=== PATIENT | female | born 1945 | race African-American/Black ===

== ENCOUNTER 2022-03-24 04:26 | Inpatient (IN) | payer MEDICAID ==
[~2022-03-24] VITALS: Ht 154.9 cm; Wt 70.3 kg
[2022-03-24 04:43] VITALS: BP_SYST 136
--- NOTE | 2022-03-24 04:53 | NUR ---
PT HERE C/O LLQ ABDOMINAL PAIN AND AROUND THE STOMA AREA SINCE 1000 AM YESTERDAY. PT DENIES N/V/D, DENIES DYSURIA. DENIES FEVER. PMH;COLON CA, COLOSTOMY BAG, HTN PT AAOX4, AMBULATE WITH STEADY GAIT TO RM3, PENDING MD FAY.
[2022-03-24] MEDS ORDERED: NACL 0.9% 1,000 ML IV ONE ×2 (05:15→06:30)
--- NOTE | 2022-03-24 05:15 | NUR ---
ASSUME CARE OF PT BY PAT PARSON, PT PLACED ON SOCIAL SERVICES DIRECTOR, BROTHER AT BEDSIDE, PT C/O LLQ ABD PAIN, PT HAS COLOSTOMY, PT DENIES N/V, PT DENIES ANY CP, PT STATES SHE HAS INTERMITENT SOB. HX- HTN
[2022-03-24 06:14] LABS: ANION GAP 4 (5-15); CALCIUM 9.3 mg/dL (8.4-11.0); CHLORIDE 103 mmol/L (98-107); CREATININE 0.86 mg/dL (0.55-1.30); GLUCOSE 100 mg/dL (70-99); POTASSIUM 3.4 mmol/L (3.5-5.1); SODIUM SERUM 143 mmol/L (136-145); UREA NITROGEN, BLOOD 17 mg/dL (8-21)
[2022-03-24 06:20] LABS: ALANINE AMINOTRANSFERASE 16 U/L (12-78); ALBUMIN 3.4 g/dL (3.4-4.8); ASPARTATE AMINOTRANSFERASE 18 U/L (10-37); LIPASE 99 U/L (73-393); TOTAL BILIRUBIN 0.2 mg/dL (0.0-1.0)
[2022-03-24] MEDS ORDERED: KETOROLAC TROMETHAMINE 30 MG VIAL IVP ONE (06:30)
[2022-03-24] MEDS ORDERED: MAGNESIUM CITRATE 300 ML ORAL SOLUTION PO ONE (06:30)
--- NOTE | 2022-03-24 07:05 | NUR ---
Admit bed requested Patient will be admitted to care of Dr. Dsouza. Admitted to Med Surg unit. Diagnosis Abd Pain Inpatient (Yes or No) Y Observation (Yes or No) N Orientation concerns or request close to nursing station (Yes or No) N Covid Status Neg On vent or bipap N Isolation requirements N Needs a sitter N From Home (Yes or if No enter name of facility) Yes Requires Dialysis (Yes or No) N Med Rec Completed (Yes of No) Y
--- NOTE | 2022-03-24 08:30 | NUR ---
HARLEY Rizo at bedside examining patient.
[2022-03-24 08:42] LABS: HEMATOCRIT 39.1 % (36-48); HEMOGLOBIN 13.1 g/dL (12.0-16.0); MEAN CORPUSCULAR HEMOGLOBIN 28 pg (27-31); MEAN CORPUSCULAR HGB CONC 33 % (32-36); MEAN CORPUSCULAR VOLUME 83 fL (79.0-98.0); PLATELET COUNT (AUTO) 187 K/uL (130-430); RED BLOOD CELL COUNT(AUTO) 4.73 MIL/uL (4.2-6.2); RED CELL DISTRIBUTION WIDTH 15.5 % (9.0-15.0); WHITE BLOOD COUNT (AUTO) 8.4 K/uL (4.8-10.8)
[2022-03-24 08:43] LABS: BILIRUBIN,URINE NEGATIVE (NEGATIVE); CLARITY/URINE CLEAR (CLEAR); COLOR,URINE YELLOW (YELLOW); GLUCOSE,URINE NEGATIVE (NEGATIVE); KETONES,URINE NEGATIVE (NEGATIVE); LEUKOCYTE ESTERASE ,URINE NEGATIVE (NEGATIVE); NITRITE, URINE NEGATIVE (NEGATIVE); PROTEIN URINE NEGATIVE (NEGATIVE); UROBILINOGEN,URINE 0.2 (0.2-1.0)
[2022-03-24 08:46] LABS: BLOOD, URINE TRACE (NEGATIVE)
[2022-03-24 09:30] LABS: RBC,URINE 0-3 /HPF (0-3); WBC,URINE 0-3 /HPF (0-3)
[2022-03-24 09:31] LABS: BACTERIA,URINE RARE /HPF (None Seen)
[2022-03-24 12:12] LABS: ATYPICAL LYMPHOCYTES % 0 % (0-0); BAND % (MANUAL) 0 % (0-6); BASOPHILS % (MANUAL) 0 % (0-2); EOSINOPHILS % (MANUAL) 1 % (0-7); LYMPHOCYTES % (MANUAL) 35 % (20-46); MONOCYTES % (MANUAL) 4 % (0-11)
--- NOTE | 2022-03-24 12:35 | NUR ---
Colostomy bag was leaking from both sides. Seal was broken. Applied new bag, with skin protectant and sealant. Pt tolerated well. Brother is at the bedside.
[2022-03-24] MEDS ORDERED: DOCUSATE SODIUM 100 MG/10 ML UDC PO PRN (13:30)
[2022-03-24] MEDS ORDERED: HYDROcodone/ACETAMIN 7.5-325 MG TAB PO PRN (13:30)
[2022-03-24] MEDS ORDERED: guaiFENesin/DEXTROMETHORPHAN 10 ML UDC PO PRN (13:30)
[2022-03-24] MEDS ORDERED: MORPHINE 2 MG/ML INJ. SYRINGE IVP PRN (13:30)
[2022-03-24] MEDS ORDERED: ACETAMINOPHEN 500 MG TABLET PO PRN (13:30)
[2022-03-24] MEDS ORDERED: ONDANSETRON HCL 4 MG/2 ML VIAL IVP PRN (13:30)
[2022-03-24] MEDS ORDERED: ZOLPIDEM TARTRATE 5 MG TABLET PO PRN (13:30)
[2022-03-24] MEDS ORDERED: PANTOPRAZOLE SODIUM 40 MG TAB PO ONE (13:45)
[2022-03-24] MEDS ORDERED: ATEN-41 PO (14:07)
[2022-03-24] MEDS ORDERED: OMEP40CA20 PO (14:09)
[2022-03-24] MEDS ORDERED: HYDR12.55 (14:10)
--- NOTE | 2022-03-24 14:12 | NUR ---
Medication reconciliation completed with information provided by [email or web address]. Any prior medication reconciliation on file was reviewed and corrected.
[2022-03-24 17:39] LABS: PROTHROMBIN TIME 9.7 SECS (9.5-12.5)
--- NOTE | 2022-03-24 18:00 | NUR ---
Patient will be admitted to care of Dr. Smith. Admitted to Med Surg unit. Will go to room 110A. Belongings list completed. Complete and up to date summary report printed. SBAR report to be given at bedside with opportunity for questions.
[2022-03-24 18:08] LABS: FREE T4 (FREE THYROXINE) 1.1 ng/dl (0.8-1.5); PHOSPHORUS 2.7 mg/dL (2.7-4.5); THYROID STIMULATING HORMONE 0.75 uIu/mL (0.36-3.74)
[2022-03-24 18:30] VITALS: BP_SYST 123
--- NOTE | 2022-03-24 18:30 | NUR ---
ARRIVAL TO UNIT Patient arrived to unit via gurney. Patient is AOX4. Iranian speaking, understands some Chinese. Patient denies pain. No facial grimace noted. On room air, no s/s of distress noted. Breathing is even and nonlabored. Vital signs obtained, as documented. Patient is NPO. No IV access. Oriented to room and call light use. Brother at bedside. Safety precautions in place and call light within reach.
--- NOTE | 2022-03-24 19:35 | NUR ---
Closing Note Patient is resting, eyes open. Denies pain. No SOB. No s.s of distress noted. Safety precautions in place and call light within reach. Endorsed care to oncoming nurse.
--- NOTE | 2022-03-24 20:36 | NUR ---
ADMIT NOTE Received pt from ER to the floor with a diagnosis of ABDOMINAL PAIN . Admission process initiated. patient oriented to pain management, safety and call light-teach back done procedures explained , patient NPO , small amount of ice chips given & tolerated family also here at the bedside / .
--- NOTE | 2022-03-24 20:45 | NUR ---
CONSULTATION PAGED/CALLED Reason for Consultation: ABDOMINAL PAIN Person Who was Notified: DR. AUGUSTINA FULLER Consulting Physician: YESY GLASER Inspector Cold Working Specialty: SURGEON Ordering Physician: DR. CORONEL
[2022-03-24] MEDS: D5NS 1,000 ML IV SCH (22:41)
--- NOTE | 2022-03-24 22:43 | NUR ---
New IV start 22 GAUGE LEFT HAND TOLERATED .
--- NOTE | 2022-03-25 00:15 | NUR ---
ASSIST FOR USE OF BED LENTZ FOR URINE , kept clean also dry as needed , family here at the bedside procedures explained / .
[2022-03-25 00:22] VITALS: BP_SYST 129; BP_SYST 140
--- NOTE | 2022-03-25 04:10 | NUR ---
Hourly Rounding patient Resting is verbally Responsive HOB elevated chest movement shallow also symmetrical / .
[2022-03-25] MEDS: D5NS 1,000 ML IV SCH ×3 (06:11→13:30)
[2022-03-25 08:00] VITALS: BP_SYST 125
--- NOTE | 2022-03-25 08:00 | NUR ---
Miss Harden has been assessed as indicated. she states that her pain in 3/10 and accepts tylenol for pain relief. Tylenol was effective. She has a colostomy with a small amount os stool output. She uses a bed starks to void. bowel sounds are active
[2022-03-25 08:10] LABS: ANION GAP 6 (5-15); CALCIUM 8.8 mg/dL (8.4-11.0); CHLORIDE 109 mmol/L (98-107); GLUCOSE 84 mg/dL (70-99); POTASSIUM 3.1 mmol/L (3.5-5.1); SODIUM SERUM 144 mmol/L (136-145); UREA NITROGEN, BLOOD 14 mg/dL (8-21)
[2022-03-25] MEDS ORDERED: POTASSIUM CHLORIDE 20 MEQ TAB.PRT.SR PO PRN (09:00)
[2022-03-25] MEDS: PANTOPRAZOLE SODIUM 40 MG TAB PO SCH (11:24)
--- NOTE | 2022-03-25 12:00 | NUR ---
Miss Harden has been started on a clear liquid diet and has tolerated this well. She has no nausea or vomiting. She continues to deny pain. And she voids via bedpan. I-MD has been used for simple communication needs. she is able to hear and communicate to staff with this method
[2022-03-25 14:46] LABS: BASOPHILS % (AUTO) 0.8 % (0.0-2.0); EOSINOPHILS # (AUTO) 0.1 K/uL (0.0-0.4); HEMATOCRIT 38.6 % (36-48); HEMOGLOBIN 12.6 g/dL (12.0-16.0); LYMPHOCYTES # (AUTO) 1.1 K/uL (1.0-5.5); LYMPHOCYTES % (AUTO) 32.1 % (20.5-51.5); MEAN CORPUSCULAR HEMOGLOBIN 27 pg (27-31); MEAN CORPUSCULAR HGB CONC 33 % (32-36); MEAN CORPUSCULAR VOLUME 84 fL (79.0-98.0); MONOCYTES # (AUTO) 0.3 K/uL (0.0-1.0); MONOCYTES % (AUTO) 7.7 % (1.7-9.3); NEUTROPHILS % (AUTO) 57.4 % (40.0-70.0); PLATELET COUNT (AUTO) 199 K/uL (130-430); RED BLOOD CELL COUNT(AUTO) 4.59 MIL/uL (4.2-6.2); RED CELL DISTRIBUTION WIDTH 15.7 % (9.0-15.0)
[2022-03-25 14:50] LABS: WHITE BLOOD COUNT (AUTO) 3.5 K/uL (4.8-10.8)
[2022-03-25 16:00] VITALS: BP_SYST 131
--- NOTE | 2022-03-25 17:00 | NUR ---
Miss Harden has been seen the surgeon today. He states that there is no need for surgery at this time. He will observe her overnight. If she continues to to tolerate clears tonight. and be advanced to soft in AM with no complication she will be DC tomorrow afternoon. via [employer] translate she expressed that she understood the plan and appeared to be compliant with the plan of care. This telegraphic typewriter operator called and spoke with her brother who is Turkish speaking and made him aware of the plan of care also
--- NOTE | 2022-03-25 19:00 | NUR ---
opening received pt from day nurse. pt in bed alert, awake and stable at this time. pt has no c/o pain or distress noted at this time. vitals taken and within normal limits resp even while on ra. skin warm to touch and clean and dry. iv site clean and intact with ivf running pt tolerated well. call light in reach and bed to lowest position.
--- NOTE | 2022-03-25 19:15 | NUR ---
Handoff has been given eunice Ochoa
[2022-03-25 20:12] VITALS: BP_SYST 130
[2022-03-26] MEDS: D5NS 1,000 ML IV SCH ×2 (00:12→05:41)
[2022-03-26 06:49] LABS: BASOPHILS % (AUTO) 0.6 % (0.0-2.0); EOSINOPHILS # (AUTO) 0.1 K/uL (0.0-0.4); EOSINOPHILS % (AUTO) 2.4 % (0.0-4.0); HEMATOCRIT 38.6 % (36-48); HEMOGLOBIN 12.6 g/dL (12.0-16.0); LYMPHOCYTES # (AUTO) 1.5 K/uL (1.0-5.5); LYMPHOCYTES % (AUTO) 40.1 % (20.5-51.5); MEAN CORPUSCULAR HEMOGLOBIN 28 pg (27-31); MEAN CORPUSCULAR HGB CONC 33 % (32-36); MEAN CORPUSCULAR VOLUME 84 fL (79.0-98.0); MONOCYTES # (AUTO) 0.2 K/uL (0.0-1.0); MONOCYTES % (AUTO) 6.2 % (1.7-9.3); NEUTROPHILS # (AUTO) 1.9 K/uL (1.8-7.7); NEUTROPHILS % (AUTO) 50.7 % (40.0-70.0); PLATELET COUNT (AUTO) 190 K/uL (130-430); RED BLOOD CELL COUNT(AUTO) 4.61 MIL/uL (4.2-6.2); RED CELL DISTRIBUTION WIDTH 15.7 % (9.0-15.0); WHITE BLOOD COUNT (AUTO) 3.8 K/uL (4.8-10.8)
[2022-03-26 08:00] VITALS: BP_SYST 141
--- NOTE | 2022-03-26 08:00 | NUR ---
Initial Notes Patient is AOx4. Patient's breathing is even and nonlabored, on room air. No s.s of distress noted. Denies pain. Breakfast at bedside. Safety precautions in place and call light within reach.
[2022-03-26 08:58] LABS: ANION GAP 9 (5-15); CALCIUM 8.7 mg/dL (8.4-11.0); CHLORIDE 112 mmol/L (98-107); CREATININE 0.69 mg/dL (0.55-1.30); GLUCOSE 93 mg/dL (70-99); POTASSIUM 3.3 mmol/L (3.5-5.1); SODIUM SERUM 146 mmol/L (136-145); UREA NITROGEN, BLOOD 7 mg/dL (8-21)
[2022-03-26] MEDS: PANTOPRAZOLE SODIUM 40 MG TAB PO SCH (09:58)
[2022-03-26] MEDS ORDERED: ATENOLOL 25 MG TABLET(TENORMIN) PO ONE (11:30)
[2022-03-26] MEDS ORDERED: POTASSIUM CHLORIDE 20 MEQ TAB.PRT.SR PO PRN (11:30)
--- NOTE | 2022-03-26 11:30 | NUR ---
Notes Patient has been cleaned and linen change. No s.s of distress noted. Denies pain. Safety precautions in place and call light within reach.
[2022-03-26 12:00] VITALS: BP_SYST 132
[2022-03-26 16:00] VITALS: BP_SYST 127
--- NOTE | 2022-03-26 16:44 | NUR ---
Notes Patient is resting, eyes closed. No s.s of distress noted. Breathing is even and nonlabored. Safety precautions in place and call light within reach.
--- NOTE | 2022-03-26 16:45 | NUR ---
PATIENT REFUSED TO PARTICIPATE WITH PHYSICAL THERAPY AND STATES SHE IS ABLE TO WALK ON HER OWN. PATIENT WAS OBSERVED WALKING ON HER OWN WITHOUT ASSISTIVE DEVICE ON THE HALLWAY.
--- NOTE | 2022-03-26 19:06 | NUR ---
Closing Notes Patient is eating dinner. Has tolerated soft diet well. No s.s of distress noted. Breathing is even and nonlabored on room air. Denies pain. Patient request colostomy bag to be changed. New bag applied. All needs met. Safety precautions in place and call light within reach. Will endorse care to oncoming nurse.
[2022-03-26 20:08] VITALS: BP_SYST 135
[2022-03-26] MEDS: ATENOLOL 25 MG TABLET(TENORMIN) PO SCH (20:12)
--- NOTE | 2022-03-27 06:26 | NUR ---
Closing Note- Pt awake and oriented. Ambulatory. Independent in ADL. LLQ Colostomy with small amount of brown soft stool. Denied any pain after meal. Encouraged activity. skin dry and intact.
[2022-03-27 06:52] LABS: BASOPHILS % (AUTO) 0.3 % (0.0-2.0); EOSINOPHILS # (AUTO) 0.1 K/uL (0.0-0.4); EOSINOPHILS % (AUTO) 2.3 % (0.0-4.0); HEMOGLOBIN 12.8 g/dL (12.0-16.0); LYMPHOCYTES # (AUTO) 1.4 K/uL (1.0-5.5); LYMPHOCYTES % (AUTO) 35.9 % (20.5-51.5); MEAN CORPUSCULAR HEMOGLOBIN 28 pg (27-31); MEAN CORPUSCULAR HGB CONC 33 % (32-36); MEAN CORPUSCULAR VOLUME 84 fL (79.0-98.0); MONOCYTES # (AUTO) 0.3 K/uL (0.0-1.0); MONOCYTES % (AUTO) 6.6 % (1.7-9.3); NEUTROPHILS # (AUTO) 2.2 K/uL (1.8-7.7); NEUTROPHILS % (AUTO) 54.9 % (40.0-70.0); PLATELET COUNT (AUTO) 184 K/uL (130-430); RED BLOOD CELL COUNT(AUTO) 4.64 MIL/uL (4.2-6.2); RED CELL DISTRIBUTION WIDTH 15.4 % (9.0-15.0)
[2022-03-27 07:31] LABS: ANION GAP 7 (5-15); CALCIUM 9.4 mg/dL (8.4-11.0); CHLORIDE 108 mmol/L (98-107); GLUCOSE 72 mg/dL (70-99); POTASSIUM 3.5 mmol/L (3.5-5.1); SODIUM SERUM 142 mmol/L (136-145); UREA NITROGEN, BLOOD 13 mg/dL (8-21)
[2022-03-27 08:00] VITALS: BP_SYST 137
--- NOTE | 2022-03-27 09:00 | NUR ---
Miss Harden has been assessed as indicated. She continues to deny pain. She ambulates about in her room without assistance and a steady gait. She tolerates her diet well. She has had no N/V/D. her colostomy has formed stool and she manages her appliance herself. She is resting quietly at this time
[2022-03-27] MEDS: PANTOPRAZOLE SODIUM 40 MG TAB PO SCH (11:12)
[2022-03-27] MEDS: ATENOLOL 25 MG TABLET(TENORMIN) PO SCH (11:13)
[2022-03-27 12:00] VITALS: BP_SYST 130
[2022-03-27 15:17] VITALS: BP_SYST 137
--- NOTE | 2022-03-27 16:15 | NUR ---
Miss Harden has been DC to home. IV access has been removed. DC instructions were reviewed with her with the [employer] everardo. She expressed that she understood that there were no changed to her Diet, activity, medications or bathing. The instructions were reviewed again when her brother arrived he translated and she again expressed that she understood. She will make her follow up appointment with her PCP. At the time of DC she was compliant with the plan to DC home and at departure she had no s/s of distress or discomfort. Her home meds were returned to her from the pharmacy hold.
== END 2022-03-27 16:15 | disposition home or self-care (01) | DRG 254 ==
LOC: SED 04:26 → SMU 11:04
PROVIDERS: ADMIT Family Medicine; ATTEND Family Medicine
DX: K43.9 Ventral hernia without obstruction or gangrene (principal); E87.2 Acidosis; E87.6 Hypokalemia; I10 Essential (primary) hypertension; K21.9 Gastro-esophageal reflux disease without esophagitis; K56.41 Fecal impaction; Z20.822 Contact with and (suspected) exposure to COVID-19; Z85.038 Personal history of other malignant neoplasm of large intestine; Z79.899 Other long term (current) drug therapy
CPT/HCPCS: 36415; 71045; 76376; 80048; 80053; 80061; 81000; 82150; 83036; 83605; 83690; 83735; 83880; 84100; 84439; 84443; 85007; 85025; 85027; 85610-TC; 85651-TC; 85730-TC; 96361; 96374; 99285; J1885

== ENCOUNTER 2024-01-24 09:05 | Emergency (ER) | payer MEDICAID ==
[~2024-01-24] VITALS: Ht 157.5 cm; Wt 77.1 kg
[~2024-01-24 09:05] MED LIST: ATEN-41 PO; HYDR12.55; OMEP40CA20 PO
[2024-01-24 09:25] VITALS: BP_SYST 137; PULSE 89; RESP 16; TEMP 97.6; O2SAT 100
[2024-01-24 09:40] LABS: ERYTHROCYTE SEDIMENTATION RATE 19 MM/HR (0-20)
[2024-01-24 09:44] LABS: BASOPHILS % (AUTO) 0.7 % (0.0-2.0); EOSINOPHILS # (AUTO) 0.1 K/uL (0.0-0.4); EOSINOPHILS % (AUTO) 1.5 % (0.0-4.0); HEMATOCRIT 40.7 % (36-48); HEMOGLOBIN 13.2 g/dL (12.0-16.0); LYMPHOCYTES # (AUTO) 1.5 K/uL (1.0-5.5); LYMPHOCYTES % (AUTO) 29.6 % (20.5-51.5); MEAN CORPUSCULAR HEMOGLOBIN 28 pg (27-31); MEAN CORPUSCULAR HGB CONC 32 % (32-36); MEAN CORPUSCULAR VOLUME 86 fL (79.0-98.0); MONOCYTES # (AUTO) 0.4 K/uL (0.0-1.0); MONOCYTES % (AUTO) 8.5 % (1.7-9.3); NEUTROPHILS % (AUTO) 59.7 % (40.0-70.0); PLATELET COUNT (AUTO) 211 K/uL (130-430); RED BLOOD CELL COUNT(AUTO) 4.71 MIL/uL (4.2-6.2); RED CELL DISTRIBUTION WIDTH 15.3 % (9.0-15.0)
[2024-01-24 10:04] LABS: PROTHROMBIN TIME 9.9 SECS (9.5-12.5)
[2024-01-24 10:13] LABS: ANION GAP 6 (5-15); CALCIUM 9.4 mg/dL (8.4-11.0); CARBON DIOXIDE 32 mmol/L (23-29); CHLORIDE 102 mmol/L (98-107); CREATININE 0.99 mg/dL (0.55-1.30); GLUCOSE 76 mg/dL (74-106); POTASSIUM 3.8 mmol/L (3.5-5.1); SODIUM SERUM 140 mmol/L (136-145); UREA NITROGEN, BLOOD 29 mg/dL (8-21); URIC ACID 7.6 mg/dL (2.4-7.0)
[2024-01-24] MEDS ORDERED: HYDR-3917 PO (10:30)
[2024-01-24] MEDS ORDERED: IBUP-1969 PO (10:30)
[2024-01-24 11:00] VITALS: BP_SYST 137; PULSE 63; RESP 18; TEMP 97.3; O2SAT 100
== END 2024-01-24 11:00 | disposition home or self-care (01) ==
LOC: SED 09:05
DX: M13.861 Other specified arthritis, right knee (principal); I10 Essential (primary) hypertension; Z79.899 Other long term (current) drug therapy
CPT/HCPCS: 36415; 73560; 80048; 84550; 85025; 85610; 85651; 85730; 99284